=== PATIENT | female | born 1995 | race Caucasian/White ===

== ENCOUNTER 2022-10-21 12:31 | Emergency (ER) | payer OTHER, SELFPAY ==
--- NOTE | ~2022-10-21 | XR_ITS ---
EXAMINATION: XR CHEST CLINICAL INFORMATION: Chest radiographs. COMPARISON: None available. TECHNIQUE: 2 views of the chest were obtained. FINDINGS: No significant abnormality is noted involving the heart, lungs, mediastinum, bony thorax or soft tissues. XR/XR chest 2V IMPRESSION: No acute cardiopulmonary process.
--- NOTE | ~2022-10-21 | CT_ITS ---
EXAMINATION: CT CERVICAL SPINE WITHOUT CONTRAST CLINICAL INFORMATION: Right-sided numbness, hand and face tingling. COMPARISON: None available. TECHNIQUE: Multiple axial images of the cervical spine were obtained without the administration of intravenous contrast. Coronal and sagittal reformatted images were obtained. This CT examination was performed using dose optimization techniques as appropriate, variously including the following: *Automated exposure control *Adjustment of mA and/or kV according to patient size (this includes techniques or standardized protocols for targeted exams where dose is matched to indication/reason for exam; i.e. extremities or head) *Use of iterative reconstruction technique DLP: 304 mGy-cm FINDINGS: There is straightening of the normal cervical lordosis with normal spinal alignment. The vertebral bodies and intervertebral disc spaces are unremarkable. The neural foramina are patent. The facet joints are unremarkable. The odontoid process is intact. The spinous and transverse processes are unremarkable. The cervical soft tissues are unremarkable. No lymphadenopathy. The thyroid gland is unremarkable. The lung apices are unremarkable. CT/CT cervical spine wo IV con IMPRESSION: Straightening of the normal cervical lordosis may be secondary to positioning and/or muscle spasm. No other significant abnormality.
--- NOTE | ~2022-10-21 | CT_ITS ---
CT ANGIOGRAM NECK WITH CONTRAST CT ANGIOGRAM BRAIN WITH CONTRAST CLINICAL INFORMATION: Right facial tingling and right hand numbness. COMPARISON: Cervical spine CT 10/21/2022. TECHNIQUE: Test bolus sequences followed by intravenous administration 70 mL of Omnipaque 350. Helical imaging was performed in the axial plane from the thoracic inlet to the skull vertex. Delayed postcontrast imaging of the head was also performed. The data was processed at the magnetic resonance technologist workstation for generation of MIP sequences. Angled MIPs and volume rendered reformatted images were also generated at an offline 3D workstation under concurrent supervision. Stenoses are assessed in accordance with NASCET criteria unless otherwise indicated. This CT examination was performed using dose optimization techniques as appropriate, variously including the following: *Automated exposure control *Adjustment of mA and/or kV according to patient size (this includes techniques or standardized protocols for targeted exams where dose is matched to indication/reason for exam; i.e. extremities or head) *Use of iterative reconstruction technique FINDINGS: BRAIN: [There is no intracranial hemorrhage, hydrocephalus, extra-axial surface collection, midline shift, or other herniation pattern. [place] to white matter differentiation is diffusely maintained without evidence of an evolved acute territorial infarct. The basilar cisterns are preserved. Chronic right pterional craniotomy changes. No significant soft tissue abnormality. No acute osseous abnormality. The paranasal sinuses and the mastoid air cells are well aerated.] CERVICAL SOFT TISSUES AND LUNG APICES: There is a 2.5 mm calculus within the posterior aspect of Stoneham's duct on the right side. There are no inflammatory changes adjacent to the submandibular glands. NECK CTA: [There is a classic 3 vessel configuration of the aortic arch. Proximal arch vessels are non-stenotic. The vertebral arteries are codominant. No significant ostial stenosis is visualized on either side. Both vertebral arteries are widely patent throughout their extracranial cervical course. Both common and internal carotid arteries are normal in course and caliber.] BRAIN CTA: [There is normal opacification of major intracranial arteries. No focal flow-limiting stenosis nor discrete proximal large artery occlusion. No aneurysm. Timing of the contrast bolus allows assessment of the major dural venous sinuses, which all opacify normally] CT/CT angio head neck IMPRESSION: - No acute intracranial findings. - No acute arterial occlusions and no significant arterial stenoses. - There is a 2.5 mm calculus within the posterior aspect of Stoneham's duct on the right side. There are no inflammatory changes adjacent to the submandibular glands.
[2022-10-21 12:39] VITALS: BP 140/87; PULSE 96; RESP 16; TEMP 37.1; O2SAT 100; BMI 17.2
--- NOTE | 2022-10-21 12:39 | ECG_ITS ---
Test Reason : Numbness in face/r hand Blood Pressure : / mmHG Vent. Rate : 100 BPM Atrial Rate : 100 BPM P-R Int : 146 ms QRS Dur : 092 ms QT Int : 340 ms P-R-T Axes : 068 088 022 degrees QTc Int : 438 ms Normal sinus rhythm Nonspecific ST abnormality Abnormal ECG When compared with ECG of 10-AUG-2013 17:12, Nonspecific T wave abnormality now evident in Inferior leads Referred By: Lesly Luciano Electronically Signed By:ABBY SINGER MD
[2022-10-21 12:40] VITALS: BP 140/87; PULSE 96; RESP 16; TEMP 37.1; O2SAT 100
[2022-10-21 13:39] LABS: MANUAL DIFF FLAG NO
[2022-10-21 13:40] LABS: Basophils Percent Auto 0.4 % (0-2); Eosinophils Absolute Auto 0.1 X10*3/uL (0.0-0.4); Eosinophils Percent Auto 1.8 % (0-4); Hematocrit 42.3 % (37.0-47.0); Imm Gran Abs Auto 0.01 X10*3/uL (0.00-0.03); Imm Gran Pct Auto 0.2 % (0.0-0.4); Lymphocytes Absolute Auto 1.4 X10*3/uL (1.2-4.9); Lymphocytes Percent Auto 31.4 % (20-40); Mean Corpuscular HGB Conc 35.5 g/dl (31.0-35.0); Mean Corpuscular Hemoglobin 32.9 pg (27.0-33.0); Mean Corpuscular Volume 92.8 fL (80.0-98.0); Monocytes Absolute Auto 0.3 X10*3/uL (0.1-1.2); Monocytes Percent Auto 6.1 % (2-11); Neutrophils Absolute Auto 2.7 x10*3/uL (2.0-8.3); Neutrophils Percent Auto 60.1 % (45-73); Platelet Count 231 X10*3/uL (160-400); Red Blood Count 4.56 X10*6/uL (4.20-5.50); Red Cell Distribution Width 11.4 % (11.0-16.0); White Blood Count 4.5 X10*3/uL (4.8-10.8)
[2022-10-21 13:41] LABS: Appearance Urine Clear; Color Urine Yellow; Glucose Urine UA Negative (Negative); Leukocyte Esterase Urine Trace (Negative); Nitrite Urine Negative (Negative); Specific Gravity - Urine <= 1.005 (1.005-1.025); UMIC TRIGGER UACC YES; Urine Blood Negative (Negative); Urine Ketones Negative (Negative); Urine Protein Negative (Neg-Trace)
[2022-10-21 13:43] LABS: Bacteria Urine None Seen (None Seen); Hyaline Casts Urine 0-2 /LPF (0-2); RBC Urine 0-2 /HPF (0-2); Squamous Epithelial Cell Urine 0-2 /HPF (0-2); WBC Urine 0-5 /HPF (0-5)
[2022-10-21 13:48] LABS: INTERNATIONAL NORM RATIO 1.1 (0.9-1.1); Prothrombin Time 12.5 SEC (10.0-13.1)
[2022-10-21 13:56] LABS: Alanine Aminotransferase 17 U/L (0-31); Albumin Level 4.7 g/dL (3.5-5.0); Alkaline Phosphatase 46 U/L (39-117); Anion Gap 11 (12-20); Aspartate Amino Transferase 18 U/L (5-31); Bilirubin Total 1.4 mg/dL (0.0-1.0); Blood Urea Nitrogen 10 mg/dL (9-16); Calcium 9.1 mg/dL (8.4-10.2); Carbon Dioxide 27 mmol/L (22-29); Chloride 105 mmol/L (96-108); Estimated Glomerular Filt Rate > 60; Glucose Random 111 mg/dL (60-115); Magnesium 2.1 mg/dL (1.6-2.6); Potassium 3.4 mmol/L (3.3-5.1); Sodium 140 mmol/L (135-145)
[2022-10-21 14:06] LABS: Troponin-I High Sensitivity < 3.5 ng/L (<3.5-17.0)
[2022-10-21 14:17] VITALS: BP 124/80; PULSE 92; RESP 14; O2SAT 100
[2022-10-21 14:59] LABS: HCG Quantitative < 2 mIU/mL
[2022-10-21] MEDS: iohexoL 350 MG/ML 100 ML INFUS..BTL IV (15:51)
--- NOTE | 2022-10-21 16:22 | ED.NEUROSD ---
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 She reports then she suddenly started having some tingling to the right side of her face/head where her craniotomy was in the past and she immediately told her nurse educator and they brought her here for further evaluation treatment. She reports that her hand numbness and spasm has already resolved. Although she still feels a weird sensation to the right side of her head that she is unable to describe the sensation. She reports that she is currently on oral control that has estrogen and progesterone. 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 Otherwise she denies any other history she denies any dizziness, change in vision, droopiness of her face, recent falls or trauma, trouble swallowing or breathing, change in voice, speech difficulty, trouble breathing, shortness of breath, chest pain, dyspnea on exertion, orthopnea, palpitations, nausea/vomiting/diarrhea, family history of sudden or NC/stroke before the age of 50. She denies any drug or alcohol usage. She denies any other symptoms complaints or concerns at this time. 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) Location: other (Right hand 1st 3 digits numbness and right facial/skull tingling sensation) History of same: No Severity: mild Quality: numb, tingling and improving Relieving factors: none Exacerbating factors: none Context: sudden onset On Anticoagulants: No Associated symptoms: denies other symptoms Treatments Prior to Arrival: none Related Data Allergies Allergy/AdvReac Type Severity Reaction Status Date / Time No Known Allergies Allergy Unverified 04/19/20 16:33 Review of Systems Review of Systems: Constitutional : No Fever, No Chills, No Night Sweats, No Fatigue, No Malaise ENT/Mouth : No Ear Pain, No Nasal Congestion, No Sinus Pain, No sore throat, No Rhinorrhea Eyes: No Eye Pain, No Swelling, No Redness, No Foreign Body, No Discharge, No Vision Changes Cardiovascular : No Chest Pain, No SOB, No Dyspnea on Exertion, No Orthopnea, No Palpitations Respiratory : No Cough, No Sputum, No Wheezing, No Dyspnea Gastrointestinal : No Nausea, No Vomiting, No Diarrhea, No Constipation, No abdominal Pain, No Hematochezia, No Melena Genitourinary : No Dysuria, No Urinary Frequency, No Urinary Incontinence, No Urgency, No Flank Pain Musculoskeletal : No joint pain, No Myalgias Skin : No lacerations Neuro : + Numbness/paresthesias/tingling/, No Loss of Consciousness, No Dizziness, No Headache, No general or focal weakness Yes all other systems are reviewed and are negative FORMERLY [facility], [facility] Past Medical History Attestation statement: The following information was validated with the patient. Source: old records reviewed, obtained from family and nursing notes reviewed Surgical History H/O craniotomy Social History Social History Advance Directives: No Advance Directives Information Provided: Yes Physical Exam Vital Signs: Vital Signs: Last Vital Signs Temp 98.7 F 10/21/22 12:40 Pulse 92 10/21/22 14:17 Resp 14 10/21/22 14:17 BP 124/80 10/21/22 14:17 Pulse Ox 100 10/21/22 14:17 O2 Del Method 10/21/22 14:17 BMI result Body Mass Index 17.2 Vital signs have been reviewed as normal and appeared to be correct. Blood pressure normal. Heart rate normal. Respiration rate normal. Temperature normal. Oxygen saturation normal. Appearance: Alert. Oriented X3. No acute distress. Head: Normal external exam. Normocephalic. Atraumatic. Able to rotate head bilaterally. Eyes: PERRLA. EOMI. No nystagmus noted. Conjunctiva and sclera normal. Eyelids normal. Corneal reflex normal. ENT: EAC normal. TM's Normal. Hearing normal. Pharynx normal. Uvula midline. tongue midline. Moist mucous membranes. No trismus noted. No drooling noted. No muffled voice noted. No nystagmus noted. Neck: Normal inspection. Neck supple. FROM. No adenopathy. Trachea midline. Thyroid Normal. No meningeal signs. No neck mass noted. CVS: Normal heart rate and rhythm. Heart sound normal. No murmurs noted. Pulses normal throughout. Respiratory: No respiratory distress. Painless inspiration. Breath sounds normal. No wheezes/rales/rhonchi noted. Chest nontender. No accessory muscle usage noted or decreased air movement noted. Abdomen: Soft and nontender. Bowel sounds normal in all 4 quadrants. No distention noted. No organomegaly noted. No visible injury noted. Back: No CVA tenderness. Full range of motion noted. Skin: Skin warm and dry. Normal skin color. Normal skin turgor. No rashes/lesions/lacerations noted. Extremities: No lower extremity edema. Extremities exhibit normal range of motion. Extremities nontender. Able to shrug shoulders bilaterally and keep up against resistance. Neuro: Oriented X 3. No motor deficit. No sensory deficit. Reflexes normal. Moving all extremities. No focal motor deficits. Cranial nerves II-XI intact bilaterally. Facial strength normal. Normal cognition. Speech normal. Gait normal. Strength 5/5 throughout. No pronator drift. No tremor noted. No fasciculations noted. No rigidity noted. Muscle tone normal throughout. No asterixis noted. [id number] test normal. Heel to dee test normal. Tandem gait normal. Does not sway with eyes open. Romberg test negative. Rapid alternating movement upper extremity normal. Rapid alternating movement lower extremity normal. Hand drop from overhead Misses face. NIHSS score 0. Course Course Course Narrative: 12:40pm - 27yoF with a PMHx of a craniotomy s/p fall with brain bleed who is presenting to the ER for sudden onset of right hand 1st 3 digits numbness and tingling and she felt like her middle finger got stuck and she was unable to straighten it out and tingling to the right side of her face/head. On arrival she reports her symptoms have improved she still has a weird sensation to the right side of her skull/face although the numbness and tingling to the right hand 1st 3 digits have resolved. She has been under lot of stress although she is on oral control. On exam she is alert oriented x3. Not in any acute distress. 5/5 motor strength to all 4 extremities. Normal sensation throughout. Negative pronator drift. Normal finger to nose. Normal steady gait. Face is symmetrical. Therefore at this time patient's NIH SS score 0 she has non disabling symptoms therefore she would not be a tPA candidate. Will obtain labs, chest x-ray, CTA of head and neck, CT cervical spine, EKG and re-evaluate. Reevaluation(s) Reevaluation #1: Labs reviewed White blood cell count 4000 Anion gap 11 Total bilirubin 1.4 Patient has a trace of leukocyte although no evidence of UTI she denies any dysuria or urinary frequency/urgency Otherwise all other labs are within normal limits CT scan of cervical spine revealed muscle spasm otherwise no other acute processes are noted. CTA of head and neck with IV contrast negative for any acute processes she was noted to have an incidental Thomas's duct on the right side otherwise no other acute processes are noted Chest x-ray within normal limits no acute processes are noted. Patient reports that she no longer has the tingling/numbness sensation to her right hand her exam completely is normal. I discussed this case with Dr. Ocampo and he agrees that the patient does not need any additional labs or imaging. Regarding her tingling/numbness sensation. She was noted to have some nonspecific ST abnormalities on her EKG which are nonspecific although she had a negative troponin and she denies any chest pain therefore we explained to her that she should follow-up with cardiology regarding these ST changes and she develops any chest pain or any worsening symptoms she can always return. Along with instructions to follow-up with primary care provider. Patient with spouse at bedside understand agree this plan. Time: 16:42 Medications Administered Discontinued Medications Generic Name Dose Route Start Last Admin Trade Name Freq PRN Reason Stop Dose Admin Iohexol 100 ml 10/21/22 15:51 10/21/22 15:51 Iohexol 350 Mg/Ml 100 Ml Infus..Btl IV 10/21/22 15:52 70 ml ONCE ONE Administration Medical Decision Making Lab Data [facility] Lab Attestation statement: I reviewed the patient's lab results. 10/21/22 13:35 10/21/22 13:35 Labs: Lab Results 10/21/22 10/21/22 10/21/22 Range/Units 13:30 13:35 13:35 WBC 4.5 L (4.8-10.8) X10*3/uL RBC 4.56 (4.20-5.50) X10*6/uL Hgb 15.0 (12.0-16.0) g/dl Hct 42.3 (37.0-47.0) % MCV 92.8 (80.0-98.0) fL MCH 32.9 (27.0-33.0) pg MCHC 35.5 H (31.0-35.0) g/dl RDW 11.4 (11.0-16.0) % Plt Count 231 (160-400) X10*3/uL MPV 9.0 L (9.4-12.3) fL Immature Gran % (Auto) 0.2 (0.0-0.4) % Neut % (Auto) 60.1 (45-73) % Lymph % (Auto) 31.4 (20-40) % Canyon % (Auto) 6.1 (2-11) % Eos % (Auto) 1.8 (0-4) % Baso % (Auto) 0.4 (0-2) % Lymph # (Auto) 1.4 (1.2-4.9) X10*3/uL [place] # (Auto) 0.3 (0.1-1.2) X10*3/uL Eos # (Auto) 0.1 (0.0-0.4) X10*3/uL Baso # (Auto) 0.0 (0.0-0.2) X10*3/uL Abs Immat Gran (auto) 0.01 (0.00-0.03) X10*3/uL Absolute Neuts (auto) 2.7 (2.0-8.3) x10*3/uL Absolute Nucleated RBC 0.000 (0.0-0.012) X10*3/uL Nucleated RBC % (auto) 0.0 (0.0-0.2) /100WBC PT 12.5 (10.0-13.1) SEC INR 1.1 (0.9-1.1) Sodium (135-145) mmol/L Potassium (3.3-5.1) mmol/L Chloride (96-108) mmol/L Carbon Dioxide (22-29) mmol/L Anion Gap (12-20) BUN (9-16) mg/dL Creatinine (0.5-1.4) mg/dL Estim Creat Clear Calc Estimated GFR Random Glucose (60-115) mg/dL Calcium (8.4-10.2) mg/dL Magnesium (1.6-2.6) mg/dL Total Bilirubin (0.0-1.0) mg/dL AST (5-31) U/L ALT (0-31) U/L Alkaline Phosphatase (39-117) U/L Troponin I High Sens (<3.5-17.0) ng/L Total Protein (6.5-8.0) g/dL Albumin (3.5-5.0) g/dL Beta HCG, Quant mIU/mL Urine Color Yellow Urine Appearance Clear Urine pH 6.0 (5.0-9.0) Ur Specific Holiday <= 1.005 (1.005-1.025) Urine Protein Negative (Neg-Trace) mg/dL Urine Glucose (UA) Negative (Negative) mg/dL Urine Ketones Negative (Negative) mg/dL Urine Blood Negative (Negative) Urine Nitrite Negative (Negative) Ur Leukocyte Esterase Trace H (Negative) Urine RBC 0-2 (0-2) /HPF Urine WBC 0-5 (0-5) /HPF Ur Squamous Epith Cells 0-2 (0-2) /HPF Urine Bacteria None Seen (None Seen) Hyaline Casts 0-2 (0-2) /LPF 10/21/22 10/21/22 Range/Units 13:35 13:35 WBC (4.8-10.8) X10*3/uL RBC (4.20-5.50) X10*6/uL Hgb (12.0-16.0) g/dl Hct (37.0-47.0) % MCV (80.0-98.0) fL MCH (27.0-33.0) pg MCHC (31.0-35.0) g/dl RDW (11.0-16.0) % Plt Count (160-400) X10*3/uL MPV (9.4-12.3) fL Immature Gran % (Auto) (0.0-0.4) % Neut % (Auto) (45-73) % Lymph % (Auto) (20-40) % Canyon % (Auto) (2-11) % Eos % (Auto) (0-4) % Baso % (Auto) (0-2) % Lymph # (Auto) (1.2-4.9) X10*3/uL Canyon # (Auto) (0.1-1.2) X10*3/uL Eos # (Auto) (0.0-0.4) X10*3/uL Baso # (Auto) (0.0-0.2) X10*3/uL Abs Immat Gran (auto) (0.00-0.03) X10*3/uL Absolute Neuts (auto) (2.0-8.3) x10*3/uL Absolute Nucleated RBC (0.0-0.012) X10*3/uL Nucleated RBC % (auto) (0.0-0.2) /100WBC PT (10.0-13.1) SEC INR (0.9-1.1) Sodium 140 (135-145) mmol/L Potassium 3.4 (3.3-5.1) mmol/L Chloride 105 (96-108) mmol/L Carbon Dioxide 27 (22-29) mmol/L Anion Gap 11 L (12-20) BUN 10 (9-16) mg/dL Creatinine 0.68 (0.5-1.4) mg/dL Estim Creat Clear Calc 97.0 Estimated GFR > 60 Random Glucose 111 (60-115) mg/dL Calcium 9.1 (8.4-10.2) mg/dL Magnesium 2.1 (1.6-2.6) mg/dL Total Bilirubin 1.4 H (0.0-1.0) mg/dL AST 18 (5-31) U/L ALT 17 (0-31) U/L Alkaline Phosphatase 46 (39-117) U/L Troponin I High Sens < 3.5 (<3.5-17.0) ng/L Total Protein 7.0 (6.5-8.0) g/dL Albumin 4.7 (3.5-5.0) g/dL Beta HCG, Quant < 2 mIU/mL Urine Color Urine Appearance Urine pH (5.0-9.0) Ur Specific Holiday (1.005-1.025) Urine Protein (Neg-Trace) mg/dL Urine Glucose (UA) (Negative) mg/dL Urine Ketones (Negative) mg/dL Urine Blood (Negative) Urine Nitrite (Negative) Ur Leukocyte Esterase (Negative) Urine RBC (0-2) /HPF Urine WBC (0-5) /HPF Ur Squamous Epith Cells (0-2) /HPF Urine Bacteria (None Seen) Hyaline Casts (0-2) /LPF Independent Interpretation I performed an independent interpretation of an: EKG (EKG normal sinus rhythm with nonspecific ST abnormalities no acute ischemic change are noted. These ST abnormalities were not present on her EKG in 2014. Although no acute ischemic change are noted.), Plain X-Ray (Agreeable radiologist report I reviewed the x-ray myself) and CT Scan (CT scan of cervical spine/CTA of head and neck with IV contrast reviewed by myself agreeable radiology report) Radiology Impression Discussion of test interpretation with radiology: I have reviewed the radiologist's reading. Radiologist Impression: FINDINGS: BRAIN: [There is no intracranial hemorrhage, hydrocephalus, extra-axial surface collection, midline shift, or other herniation pattern. [place] to white matter differentiation is diffusely maintained without evidence of an evolved acute territorial infarct. The basilar cisterns are preserved. Chronic right pterional craniotomy changes. No significant soft tissue abnormality. No acute osseous abnormality. The paranasal sinuses and the mastoid air cells are well aerated.] CERVICAL SOFT TISSUES AND LUNG APICES: There is a 2.5 mm calculus within the posterior aspect of Thomas's duct on the right side. There are no inflammatory changes adjacent to the submandibular glands. NECK CTA: [There is a classic 3 vessel configuration of the aortic arch. Proximal arch vessels are non-stenotic. The vertebral arteries are codominant. No significant ostial stenosis is visualized on either side. Both vertebral arteries are widely patent throughout their extracranial cervical course. Both common and internal carotid arteries are normal in course and caliber.] BRAIN CTA: [There is normal opacification of major intracranial arteries. No focal flow-limiting stenosis nor discrete proximal large artery occlusion. No aneurysm. Timing of the contrast bolus allows assessment of the major dural venous sinuses, which all opacify normally] CT/CT angio head neck IMPRESSION: - No acute intracranial findings. ? - No acute arterial occlusions and no significant arterial stenoses. ? - There is a 2.5 mm calculus within the posterior aspect of Thomas's duct on the right side. There are no inflammatory changes adjacent to the submandibular glands. FINDINGS: There is straightening of the normal cervical lordosis with normal spinal alignment. The vertebral bodies and intervertebral disc spaces are unremarkable. The neural foramina are patent. The facet joints are unremarkable. The odontoid process is intact. The spinous and transverse processes are unremarkable. The cervical soft tissues are unremarkable. No lymphadenopathy. The thyroid gland is unremarkable. The lung apices are unremarkable. CT/CT cervical spine wo IV con IMPRESSION: Straightening of the normal cervical lordosis may be secondary to positioning and/or muscle spasm. No other significant abnormality.? ? ? FINDINGS: No significant abnormality is noted involving the heart, lungs, mediastinum, bony thorax or soft tissues. XR/XR chest 2V IMPRESSION: No acute cardiopulmonary process. Independent Historian Clinical information obtained from an independent historian. History obtained from or confirmed by: Spouse and Parent External Record Review I reviewed all the patient's old records that are accessible in our system NIH Stroke Scale Internal: Initial- Upon Arrival Time: 12:40 Level of Consciousness: Alert Level of Consciousness Questions: Answers both questions correctly Level of Consciousness Commands: Performs both tasks correctly Best Gaze: Normal Visual: No visual loss Facial Palsy: Normal Motor Arm (Right): No drift Motor Arm (Left): No drift Motor Leg (Right): No drift Motor Leg (Left): No drift Limb Ataxia: Absent Sensory: Normal Best Language: No aphasia Dysarthia: Normal Extinction and Inattention: No abnormality Score: 0 Critical Care Time Critical Care Time Critical Care Time: Yes Total Critical Care Time: 60 Attestation: I personally attest to this time spent taking care of the patient Discharge Plan Discharge Clinical Impression: Paresthesias Patient Disposition: Home, Self-Care Instructions: Paresthesia (ED) Referrals: Mich Bennett MD [Physician] - (Call to make a follow-up appointment) Stand Alone Forms: Work/School Release
[2022-10-21 16:56] VITALS: BP 139/77; PULSE 82; RESP 18; TEMP 37.1; O2SAT 100
== END 2022-10-21 17:11 | disposition home or self-care (01) ==
PROVIDERS: Physician Assistant Medical; Emergency Provider Emergency Medicine
DX: R20.2 Paresthesia of skin (principal); R51.9 Headache, unspecified; M54.2 Cervicalgia; R07.89 Other chest pain; Z87.820 Personal history of traumatic brain injury; Z56.6 Other physical and mental strain related to work; Z79.899 Other long term (current) drug therapy
CPT/HCPCS: 36415; 70496; 70498; 71046; 72125; 80053; 81001; 83735; 84484; 84702; 85025; 85610; 93005; 99284; Q9967

== ENCOUNTER → 2022-12-10 10:29 | Outpatient (BNVA) | payer OTHER, SELFPAY | PROVIDERS: PCP Family Medicine; Visit Provider Internal Medicine Cardiovascular Disease ==